=== PATIENT | female | born 1965 | race Caucasian/White ===

== ENCOUNTER 2022-12-14 10:43 | Emergency (ER) | payer BC ==
--- NOTE | 2022-12-14 11:29 | XRAY Report ---
PROCEDURE: Chest 1 View X-Ray INDICATIONS: Chest pain TECHNIQUE: One view of the chest was acquired. COMPARISON: None. FINDINGS: Surgical changes and devices: None. Lungs and pleura: No pleural effusions or pneumothorax. Lungs are clear. Mediastinum: Mediastinal contours appear normal. Heart size is normal. Bones and chest wall: No suspicious bony lesions. Overlying soft tissues appear unremarkable. IMPRESSION: No acute cardiopulmonary process. Reviewed by: Omar Dunn MD on 12/14/2022 11:27 AM PDT Approved by: Omar Dunn MD on 12/14/2022 11:27 AM PDT Station ID: [id number]
[2022-12-14 11:33] LABS: BASOPHILS % (AUTO) 0.6 %; EOSINOPHILS % (AUTO) 0.8 %; HCT - HEMATOCRIT 38.5 % (37.0-47.0); HGB - HEMOGLOBIN 13.8 g/dL (12.0-16.0); LYMPHOCYTES # (AUTO) 1.2 10^3/uL (1.5-3.5); LYMPHOCYTES % (AUTO) 25.6 %; MEAN CORPUSCULAR HEMOGLOBIN 31.2 pg (27.0-31.0); MEAN CORPUSCULAR HGB CONC 35.8 g/dL (32.0-36.0); MEAN CORPUSCULAR VOLUME 86.9 fL (81.0-99.0); MEAN PLATELET VOLUME 10.5 fL (7.9-10.8); MONOCYTES # (AUTO) 0.4 10^3/uL (0.0-1.0); MONOCYTES % (AUTO) 7.8 %; NEUTROPHILS # (AUTO) 3.1 10^3/uL (1.5-6.6); PLT - PLATELET COUNT 193 10^3/uL (130-450); RED BLOOD COUNT 4.43 10^6/uL (4.20-5.40); RED CELL DISTRIBUTION WIDTH 13.2 % (12.0-15.0); WHITE BLOOD COUNT 4.7 x10^3/uL (4.8-10.8)
[2022-12-14] MEDS ORDERED: SODIUM CHLORIDE 0.9% 1,000 ML IV STA (11:43)
[2022-12-14] MEDS ORDERED: LOSARTAN 50 MG TABLET PO STA (11:56)
[2022-12-14 11:58] LABS: ALBUMIN 4.5 g/dL (3.2-5.5); ALBUMIN/GLOBULIN RATIO 1.3 (1.0-2.2); BILIRUBIN,TOTAL 1.5 mg/dL (0.2-1.0); CALCIUM 9.1 mg/dL (8.5-10.3); CREATININE 0.7 mg/dL (0.4-1.0); POTASSIUM 3.4 mmol/L (3.5-5.0)
--- NOTE | 2022-12-14 11:59 | ED Physician Documentation ---
History of Present Illness - Stated complaint Stated Complaint: SHAKING,DIZZINESS - Chief complaint Chief Complaint: Neuro - Additonal information Additional information: 57-year-old female presents to the emergency department for evaluation of dizziness shakiness. Symptoms began about 9 AM after she had consumed a cup of black tea. Historically she does have a history of caffeine Insensitivity and had a similar reaction on Monday after drinking caffeine but did not think black tea would affect her. She states that she began having tingling in all her extremities. She denies chest pain or shortness of air. She does report that for the last several months she has been taking losartan for what she believes to be high blood pressure but has missed her doses the last 2 mornings. She is currently visiting the [place] from [facility]. With the shakiness, dizziness and tingling she did have some nausea but no vomiting. Denies abdominal pain. Denies tobacco use. She is a moderate alcohol user. No previous history of heart attack/heart disease or strokes. In the room the patient is alert and well-appearing though on the monitor she does have a sinus tachycardia. She is noted to be hypertensive as well Review of Systems Constitutional: denies: Fever Throat: reports: Reviewed and negative Cardiac: reports: Palpitations. denies: Chest pain / pressure, Pedal edema, Calf pain Respiratory: reports: Reviewed and negative GI: reports: Nausea : reports: Reviewed and negative Skin: reports: Reviewed and negative Musculoskeletal: reports: Reviewed and negative PD PAST MEDICAL HISTORY - Present Medications Home Medications: Ambulatory Orders Medication Instructions Recorded Confirmed Losartan [Cozaar] 50 mg PO DAILY 12/14/22 12/14/22 - Allergies Allergies/Adverse Reactions: Allergies Allergy/AdvReac Type Severity Reaction Status Date / Time No Known Drug Allergies Allergy Verified 12/14/22 10:53 PD ED PE NORMAL - General General: Alert and oriented X 3, No acute distress, Well developed/nourished - HEENT HEENT: Atraumatic, Moist mucous membranes - Neck Neck: Supple, no meningeal sign, No adenopathy, Thyroid normal - Cardiac Cardiac: RRR (Sinus tachycardia on the monitor rate of 110. Regular rate and rhythm. 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 Eye Opening: Spontaneous Motor: Obeys Commands Verbal: Oriented GCS Score: 15 Results - Vitals Vitals: Vital Signs - 24 hr 12/14/22 12/14/22 12/14/22 10:49 11:23 11:30 Temperature 36.6 C Heart Rate 123 H 110 H 112 H Heart Rate [ Sitting] Heart Rate [ Standing] Heart Rate [ Supine] Respiratory 18 20 18 Rate Blood Pressure 191/76 H 160/96 H 190/89 H Blood Pressure [Sitting] Blood Pressure [Standing] Blood Pressure [Supine] O2 Saturation 100 100 96 12/14/22 12/14/22 12/14/22 12:00 12:03 13:10 Temperature Heart Rate 104 H 99 Heart Rate [ 100 Sitting] Heart Rate [ 104 H Standing] Heart Rate [ 108 H Supine] Respiratory 17 18 Rate Blood Pressure 162/79 H Blood Pressure 179/81 H [Sitting] Blood Pressure 169/87 H [Standing] Blood Pressure 180/80 H [Supine] O2 Saturation 100 100 12/14/22 13:25 Temperature Heart Rate 101 H Heart Rate [ Sitting] Heart Rate [ Standing] Heart Rate [ Supine] Respiratory 17 Rate Blood Pressure Blood Pressure [Sitting] Blood Pressure [Standing] Blood Pressure [Supine] O2 Saturation 99 Oxygen O2 Source Room air - EKG (time done) 1057 EKG releavant findings:: EKG personally interpreted by author of this note. Relevant findings are: Rate: Rate (enter#) (106) Rhythm: Sinus tachycardia [place]: Normal Intervals: Normal AK. No: Prolonged QT Ischemia: Non specific changes Compare to prior EKG: Old EKG unavailable Computer interpretation: Agree with computer - Labs Labs: Laboratory Tests 12/14/22 12/14/22 12/14/22 10:54 11:00 11:38 WBC 4.7 L RBC 4.43 Hgb 13.8 Hct 38.5 MCV 86.9 MCH 31.2 H MCHC 35.8 RDW 13.2 Plt Count 193 MPV 10.5 Neut # (Auto) 3.1 Lymph # (Auto) 1.2 L [place] # (Auto) 0.4 Eos # (Auto) 0.0 Baso # (Auto) 0.0 Absolute Nucleated RBC 0.00 Nucleated RBC % 0.0 Sodium 132 L Potassium 3.4 L Chloride 95 L Carbon Dioxide 23 Anion Gap 14.0 H BUN 10 Creatinine 0.7 Estimated GFR (MDRD) 86 L Glucose 114 H POC Whole Bld Glucose 133 H Calcium 9.1 Total Bilirubin 1.5 H AST 53 H ALT 47 Alkaline Phosphatase 62 Troponin I High Sens Total Protein 8.0 Albumin 4.5 Globulin 3.5 Albumin/Globulin Ratio 1.3 Lipase 36 TSH Free T4 12/14/22 12/14/22 11:38 11:38 WBC RBC Hgb Hct MCV MCH MCHC RDW Plt Count MPV Neut # (Auto) Lymph # (Auto) [place] # (Auto) Eos # (Auto) Baso # (Auto) Absolute Nucleated RBC Nucleated RBC % Sodium Potassium Chloride Carbon Dioxide Anion Gap BUN Creatinine Estimated GFR (MDRD) Glucose POC Whole Bld Glucose Calcium Total Bilirubin AST ALT Alkaline Phosphatase Troponin I High Sens 5.7 Total Protein Albumin Globulin Albumin/Globulin Ratio Lipase TSH 1.21 Free T4 0.95 - Rads (name of study) cxr Relevant Findings:: Final report received (No acute cardiopulmonary process) PD Medical Decision Making - ED course Complexity details: reviewed results, considered differential, d/w patient ED course: 49-year-old female presents emergency department for evaluation of dizziness, palpitations tingling that began this morning after drinking a cup of black tea. She does have a history of caffeine and sensitivity but not typically when consuming tea. She presents to the emergency department hypertensive and tachycardic with a heart rate in the 120s. With rest it is down to about 110. Discussion with the patient she was without any chest pain or shortness of air. She had not taken her typical dose of losartan in about 2 days. She is currently visiting the [place]. Subsequently we did obtain CBC, electrolytes EKG and chest x-ray. Per my interpretation her CBC showed no worrisome anemia. Her electrolytes show a mildly low potassium and sodium though I do not believe that this is clinically significant or contributing to her symptoms. Her AST was 53 and her T. bili was 1.5. She did not have any abdominal pain therefore I have low suspicion for occult gallbladder disease. She is a moderate drinker and this may be reflected in that. Her high-sensitivity troponin was negative. Her EKG per my interpretation was nonischemic making ACS unlikely. Chest x-ray was without focal findings suggest pneumonia, pleural effusion or pneumothorax. I am subsequently in the ED the patient was administered her typical dose of losartan which did improve her systolic blood pressure to about 160. Her heart rate also improved with some IV fluids. I did give the patient a single dose of 20 mg propanolol and patient reported she was feeling better. She is scheduled to leave the [place] tomorrow and did not want A prescription for propanolol but will follow closely with her primary care doctor. They may want to consider alpha the pastrana and caffeine cessation. May also benefit in the long-term from a beta-lori. Clinically the patient does not appear to have any symptoms consistent with congestive heart failure. She is discharged home in stable condition with usual emergent return precautions discussed Departure - Departure Disposition: 01 Home, Self Care Clinical Impression: Tachycardia, Hypokalemia, Elevated bilirubin, Elevated AST (SGOT) Hypertension Qualifiers: Hypertension type: primary hypertension Qualified Code(s): I10 - Essential (primary) hypertension Condition: Stable Record reviewed to determine appropriate education?: Yes Comments: Louise you are seen today in the emergency department because you Developed some elevated heart rate, high blood pressure, dizziness and generalized tingling. This occurred after drinking black tea. You do have a history of hypertension for which she takes losartan and had not taken it for about 2 days. We did administer your typical dose of losartan here in the ER and your blood pressure has improved to a systolic of 160. While in the emergency department we did obtain routine screening labs that included a CBC and general electrolytes. You do not have a worrisome anemia. There were some mild variations of normal in your potassium and sodium particularly potassium 3.2 and a sodium of 132. I do not believe that these are clinically significant or contributing to your symptoms. I also note that your bilirubin is mildly elevated at 1.5 and your AST is 53. This can sometimes be seen in moderate drinkers. Your TSH and corrected T4 today are both normal. I encourage you to discuss this with your primary care doctor. While here in the emergency department your EKG did not show signs of a heart attack and your troponin was normal meaning you are not clinically having a heart attack but with a history of high blood pressure and now tachycardia I am wondering if you have some caffeine and sensitivity. I would recommend that you avoid any caffeine until seen by primary doctor. You may benefit from referral to a storage garage manager. Return to the ER if you have any chest pain, shortness of air or fainting episodes.
[2022-12-14 12:39] LABS: THYROID STIMULATING HORMONE 1.21 uIU/mL (0.34-5.60)
[2022-12-14 12:41] LABS: FREE T4 (FREE THYROXINE) 0.95 ng/dL (0.58-1.64)
[2022-12-14] MEDS ORDERED: PROPRANOLOL 10 MG TABLET PO STA (13:08)
[2022-12-14 13:15] VITALS: BP 162/79
== END 2022-12-14 13:48 | disposition home or self-care (01) ==
LOC: ED 10:43
DX: R00.0 Tachycardia, unspecified (principal); E87.6 Hypokalemia; R82.2 Biliuria; I10 Essential (primary) hypertension
CPT/HCPCS: 36415; 71045; 80053; 83690; 84439; 84443; 84484; 85025; 93005; 99284; A9270